=== PATIENT | female | born 1955 | race Two or more races ===

== ENCOUNTER 2016-06-27 13:59 | Emergency (ER) | payer SELFPAY ==
--- NOTE | 2016-06-27 14:46 | EDPHY ---
H & P Time Seen by Provider: 06/27/16 14:19 HPI/ROS: HPI Constipation, history of irritable bowel syndrome. 61-year-old female by private vehicle with her son. She is visiting from [place]. She has been here for about 2 months. She is to return on August 04. She has a history of irritable bowel syndrome and intermittent constipation versus diarrhea. She reports that she develops a sensation to defecate and develops crampy lower abdominal pain and then has been having lately hard bowel movements. She reports that these symptoms and sensations have been worsening over the last 2 weeks. Her last bowel movement was this morning. She denies any bloody or melenic stool. She describes it again as difficult to push out. She denies any diarrhea. She has not had any nausea or vomiting. Last meal was this morning. ROS: Constitutional: No fever, no chills. No weakness. Eyes: No discharge. No changes in vision. ENT: No sore throat. No nasal congestion or rhinorrhea. Respiratory: No cough. No shortness of breath. Cardiac: No chest pain, no palpitations. Gastrointestinal: As above, no vomiting, no diarrhea. Genitourinary: No hematuria. No dysuria or increased frequency with urination. Musculoskeletal: No back pain. No neck pain. No myalgias or arthralgias. Skin: No rashes. Neurological: No headache. No focal weakness or altered sensation. Past medical history: As above. Otherwise none. She takes an herbal laxative from [place]. Social history: As above. Physical Exam: General Appearance: Alert, no distress. This patient is responding to questions appropriately and in full sentences. This patient appears well- hydrated and well-nourished. Eyes: Pupils equal and round no pallor or injection. No lid edema, erythema or injection. Respiratory: There are no retractions, lungs are clear to auscultation with good air movement bilaterally. Cardiovascular: Regular rate and rhythm. No murmur. Gastrointestinal: Abdomen is soft and nontender, no masses, bowel sounds normal. No focal tenderness at McBurney's point. No Mcgee sign. Neurological: Motor sensory function is grossly intact. Cranial nerves are normal. Gait is normal. Skin: Warm and dry, no rashes. Musculoskeletal: No CVA tenderness bilaterally. Extremities are symmetrical. All joints range without pain or impingement. Psychiatric: No agitation. No depression. Database: EKG: Imaging: Procedures: Emergency department course: She has a benign abdominal exam. Her history and presentation are not consistent with an acute abdominal surgical process. I discussed referral to a bat person for consultation regarding her IBS and further management. I also discussed different types of laxatives. The patient and the son in dorsal following up with Gastroenterology. Return to Urgent Care/emergency department precautions were discussed with the 2 of them. All of their questions were answered. She was discharged in good condition with her son. Differential Diagnosis: The differential diagnosis on this patient includes but is not limited to irritable bowel syndrome, constipation. Volvulus/bowel obstruction, diverticulitis, colitis, appendicitis, other acute surgical process unlikely. This represents a partial list of diagnoses considered. These considerations are based on history, physical exam, past history, reassessment and diagnostic testing. Departure - Departure Disposition: Home, Routine, Self-Care Clinical Impression: Irritable bowel syndrome, Constipation Condition: Good Instructions: High Fiber Diet (ED), Constipation (ED), Irritable Bowel Syndrome (ED) Additional Instructions: Read and follow provided instructions. Follow-up with Gastroenterology as discussed for re-evaluation and further management of your irritable bowel syndrome. Call the office of Gastro[facility]ology of the [facility] and Elroy Fuentes or 1 of his partners to schedule an appointment. Go to the [facility] pharmacy, discussed with pharmacist different forms of treatment for constipation, these include Metamucil, MiraLax and docusate sodium. Return to the emergency department for worsening abdominal pain, fever, vomiting , blood in your stool or other serious concerns. Referrals: Elroy Fuentes MD, FACG [Medical Doctor] - As per Instructions
[2016-06-27 14:53] VITALS: BP 163/93; PULSE 76; RESP 16; TEMP 97.9; O2SAT 98
== END 2016-06-27 15:00 | disposition home or self-care (01) ==
LOC: CED 13:59
DX: K59.00 Constipation, unspecified (principal); K58.9 Irritable bowel syndrome, unspecified
CPT/HCPCS: G0463-PO